=== PATIENT | male | born 1975 | race Two or more races ===

== ENCOUNTER 2022-10-24 18:01 | Emergency (ER) | payer MEDICARE, MEDICAID | END 2022-10-25 05:13 | disposition left against medical advice (07) | LOC: EDBD 18:01 → ER 18:01 | DX: S61.411A Laceration without foreign body of right hand, initial encounter (principal); Z53.21 Procedure and treatment not carried out due to patient leaving prior to being seen by health care provider; W25.XXXA Contact with sharp glass, initial encounter; Y93.89 Activity, other specified; Y92.89 Other specified places as the place of occurrence of the external cause; Y99.8 Other external cause status ==